=== PATIENT | male | born 1990 | race Two or more races ===

== ENCOUNTER 2018-04-27 00:58 | Emergency (ER) | payer OTHER ==
[~2018-04-27] VITALS: Ht 175.3 cm; Wt 65.8 kg
[2018-04-27] MEDS ORDERED: LEVSIN/SL0.125 MG SL (05:17)
[2018-04-27] MEDS ORDERED: PEPCID AC20 MG PO (05:17)
== END 2018-04-27 05:22 | disposition home or self-care (01) ==
LOC: ER 00:58
DX: R10.32 Left lower quadrant pain (principal)